=== PATIENT | female | born 1995 | race Caucasian/White ===

== ENCOUNTER 2017-03-14 15:50 | Emergency (ER) | payer BC ==
[2017-03-14 16:42] VITALS: BP 113/67
--- NOTE | 2017-03-14 17:05 | UC ---
Throat Pain/Nasal [place] HPI - HPI Summary HPI Summary: 22 y/o female presents to the urgent care c/o recurrent sore throat that returned yesterday. Pt reports symptoms started on 02/21/2017. She went to an Urgent care at [facility] and was Rx Amoxicillin for pharyngitis, never got the strep test done. She took Tx until 02/28/2017 w/o any improvement of symptoms. Her Mother's friend Rx Z-duncan. She took it for 4 days and then she developed a generalized rash. Her PCP Dx with Scarlet Fever and Rx Penicillin for 7 days. However. She felt feverish with sore throat yesterday. She took Tylenol PO at 0930am this morning to alleviate symptoms. She wants to make sure she doen't have strep. - History of Current Complaint Hx Obtained From: Patient Hx Last Menstrual Period: doesn't get period - on OCP Onset/Duration: Gradual Onset, Lasting Weeks - 3 weeks, Still Present, Worse Since - yesterday Severity: Moderate Pain Intensity: 3 Pain Scale Used: 0-10 Numeric Cough: None Associated Signs & Symptoms: Positive: Sinus Discomfort, Nasal Discharge, Fever , Other - body aches, VANEGAS - Epiglottits Risk Factors Epiglottis Risk Factors: Negative <Genevieve Live - Last Filed: 03/16/17 11:25> <Rachel Lao - Last Filed: 03/17/17 09:41> - History of Current Complaint Chief Complaint: UCGeneralIllness Stated Complaint: SORE THROAT Time Seen by Provider: 03/14/17 16:54 - Allergies/Home Medications Allergies/Adverse Reactions: Allergies Allergy/AdvReac Type Severity Reaction Status Date / Time Ipecac Allergy Intermediate systolic Verified 03/14/17 16:33 [From Fenergan Expectorante] reaction Potassium Guaiacolsulfonate Allergy Intermediate systolic Verified 03/14/17 16: 33 [From Fenergan Expectorante] reaction Promethazine Allergy Intermediate systolic Verified 03/14/17 16:33 [From Fenergan Expectorante] reaction Sulfa Antibiotics Allergy Intermediate Hives Verified 03/14/17 16:33 Metoclopramide Allergy Muscle Ache Verified 03/14/17 16:33 [From Metoclopromide] PMH/Surg Hx/FS Hx/Imm Hx Previously Healthy: Yes - Her PCP is in the process to r/o an autoimmune disorder - Surgical History Surgical History: Yes Surgery Procedure, Year, and Place: EAR TUBES A CHILD. WISDOM TEETH EXTRACTIONS - Family History Known Family History: Positive: Diabetes Negative: Hypertension - Social History Occupation: Employed Full-time Lives: With Family Alcohol Use: Rare Substance Use Type: None Smoking Status (MU): Never Smoked Tobacco Have You Smoked in the Last Year: No - Immunization History Most Recent Influenza Vaccination: 2016 <NicholasStephaniGenevieve - Last Filed: 03/16/17 11:25> Review of Systems Constitutional: Fever Skin: Negative Eyes: Negative ENT: Sore Throat Respiratory: Negative Cardiovascular: Negative Gastrointestinal: Negative Genitourinary: Negative Motor: Negative Neurovascular: Negative Musculoskeletal: Negative Neurological: Headache Psychological: Negative Is Patient Immunocompromised?: No All Other Systems Reviewed And Are Negative: Yes <Genevieve Live - Last Filed: 03/16/17 11:25> Physical Exam Triage Information Reviewed: Yes Vital Signs: Initial Vital Signs Temp 98.2 F 03/14/17 16:34 Pulse 99 03/14/17 16:34 Resp 16 03/14/17 16:34 BP 113/67 03/14/17 16:34 Pulse Ox 99 03/14/17 16:34 - Additional Comments VITAL SIGNS: Reviewed. GENERAL: Patient is a well developed and nourished female who is sitting comfortable in the examining table. Patient is not in any acute respiratory distress. HEAD AND FACE: No signs of trauma. No ecchymosis, hematomas or skull depressions. No sinus tenderness. EYES: PERRLA, EOMI x 2, No injected conjunctiva, no nystagmus. No photophobia. EARS: Hearing grossly intact. Ear canals and tympanic membranes are within normal limits. MOUTH: Positive pharynx with erythema, no exudates, no palatal petechiae. No B /L tonsillar enlargement with exudate. Uvula in midline. NECK: Supple, trachea is midline, Positive anterior cervical lymphadenopathy, no JVD, no carotid bruit, no c-spine tenderness, neck with full ROM. No meningeal signs, no Kernig's or brudzinskis signs. CHEST: Symmetric, no tenderness at palpation LUNGS: Clear to auscultation bilaterally. No wheezing or crackles. CVS: Regular rate and rhythm, S1 and S2 present, no murmurs or gallops appreciated. ABDOMEN: Soft, non-tender. No signs of distention. No rebound no guarding, and no masses palpated. Bowel sounds are normal. EXTREMITIES: FROM in all major joints, no edema, no cyanosis or clubbing. NEURO: Alert and oriented x 3. No acute neurological deficits. Speech is normal and follows commands. SKIN: Dry and warm <Genevieve Live - Last Filed: 03/16/17 11:25> Vital Signs: Initial Vital Signs Temp 98.2 F 03/14/17 16:34 Pulse 99 03/14/17 16:34 Resp 16 03/14/17 16:34 BP 113/67 03/14/17 16:34 Pulse Ox 99 03/14/17 16:34 <Rachel Lao - Last Filed: 03/17/17 09:41> Throat Pain/Nasal Course/Dx - Course Course Of Treatment: 22 y/o female presents to the urgent care c/o recurrent sore throat that returned yesterday. Pt reports symptoms started on 02/21/2017. She went to an Urgent care at [facility] and was Rx Amoxicillin for pharyngitis, never got the strep test done. She took Tx until 02/28/2017 w/o any improvement of symptoms. Her Mother's friend Rx Z-duncan. She took it for 4 days and then she developed a generalized rash. Her PCP Dx with Scarlet Fever and Rx Penicillin for 7 days. However. She felt feverish with sore throat yesterday. She took Tylenol PO at 0930am this morning to alleviate symptoms. She wants to make sure she doesn't have strep. Hx obtained. PT with pharyngitis on examination. Rapid strep ordered, result: negative Dx: Viral pharyngitis. Pt Rx Ibuprofen PO and Omeprazole PO for GI protection. PT to increase fluid intake, rest , eat well. If not improvement to f/u with PCP or return to the urgent care for further evaluation and treatment. PT understood and agreed. - Differential Dx/Diagnosis Differential Diagnosis/HQI/PQRI: Influenza, Laryngitis, Mononucleosis, Pharyngitis, Sinusitis, Tonsillitis, URI Provider Diagnoses: 1- Acute pharyngitis <Genevieve Live - Last Filed: 03/16/17 11:25> Discharge <Genevieve Live - Last Filed: 03/16/17 11:25> <Rachel Lao - Last Filed: 03/17/17 09:41> - Discharge Plan Condition: Stable Disposition: HOME Prescriptions: Ibuprofen TAB* [Motrin TAB* 600 MG] 600 mg PO Q6H PRN #20 tab PRN Reason: Sore Throat Omeprazole CAP* [Prilosec CAP* 20 MG] 20 mg PO DAILY #30 cap. Patient Education Materials: Pharyngitis (ED) Referrals: Liliya Edouard MD [Primary Care Provider] - 3 Days Additional Instructions: 1-Please take ibuprofen PO q6-8hrs prn as instructed after meals to alleviate pain and swelling. Increase fluid intake, eat well, rest and avoid strenuous exercise 2- take Omeprazole PO to protect your GI while taking Ibuprofen. 2-If symptoms do not improve or worsen please return to the urgent care or f/u with your PCP for further evaluation and treatment. Attestation Statement User Type: Provider - I was available for consult. This patient was seen by the [facility]. The patient was not presented to, seen by, or examined by me. -Adams <Rachel Lao - Last Filed: 03/17/17 09:41>
== END 2017-03-14 17:52 | disposition home or self-care (01) ==
LOC: UCCORT 15:50
DX: J02.9 Acute pharyngitis, unspecified (principal); R09.81 Nasal congestion; R50.9 Fever, unspecified; R51 Headache; M79.1 Myalgia; Z88.2 Allergy status to sulfonamides
CPT/HCPCS: 87502; 87651; 99212; G0463